=== PATIENT | female | born 1955 | race Caucasian/White ===

== ENCOUNTER → 2018-01-12 | Outpatient (CLI) | payer OTHER | END | disposition home or self-care (01) | LOC: CFH 11:43 | PROVIDERS: ATTEND Family Medicine | DX: M17.12 Unilateral primary osteoarthritis, left knee (principal) ==

== ENCOUNTER 2018-03-24 08:38 | Inpatient (IN) | payer OTHER ==
[~2018-03-24] VITALS: Ht 152.4 cm; Wt 73.7 kg
[2018-03-24] MEDS ORDERED: HYDROmorphone 2 MG/ML, 1ML ONE ×2 (09:12→10:07)
[2018-03-24 09:26] LABS: MEAN CORPUSCULAR HEMOGLOBIN 30.3 pg (27.0-34.8); MEAN CORPUSCULAR HGB CONC 33.2 g/dL (32.4-35.8); MEAN CORPUSCULAR VOLUME 91.3 fL (80-100); MEAN PLATELET VOLUME 8.5 fL (7.4-10.4); PLATELET COUNT 289 x10^3/uL (130-400); RED BLOOD COUNT 4.86 x10^6/uL (3.82-5.3); RED CELL DISTRIBUTION WIDTH 12.8 % (9.6-15.2)
[2018-03-24 09:29] LABS: MICROSCOPIC AUTO
[2018-03-24] MEDS ORDERED: HYDROmorphone 1 MG/ML, 1ML IM ONE (09:30)
[2018-03-24 09:31] LABS: CULTURE INDICATED? YES
[2018-03-24 09:35] LABS: ALANINE AMINOTRANSFERASE 23 U/L (12-78); ANION GAP 11 mmol/L (5-15); CALCIUM 8.3 mg/dL (8.5-10.1); CHLORIDE 105 mmol/L (98-107); CREATININE 1.03 mg/dL (0.55-1.02)
[2018-03-24 09:38] LABS: ALKALINE PHOSPHATASE 105 U/L (45-117); BILIRUBIN,TOTAL 0.5 mg/dL (0.2-1.0); TOTAL PROTEIN 7.8 g/dL (6.4-8.2)
[2018-03-24 09:42] LABS: BASOPHILS # (AUTO) 0.02 x10^3/uL (0-0.1); BASOPHILS % (AUTO) 0 % (0-1); EOSINOPHILS # (AUTO) 0.02 x10^3/uL (0-0.4); EOSINOPHILS % (AUTO) 0 % (1-7); LYMPHOCYTES # (AUTO) 0.86 x10^3/uL (1-3.4); LYMPHOCYTES % (AUTO) 6 % (22-44); MD SCAN; MONOCYTES # (AUTO) 0.03 x10^3/uL (0.2-0.8); MONOCYTES % (AUTO) 0 % (2-9); NEUTROPHILS # (AUTO) 13.99 x10^3/uL (1.8-6.8); NEUTROPHILS % (AUTO) 94 % (42-75)
[2018-03-24] MEDS ORDERED: HYDROmorphone 2 MG/ML, 1ML IVPush PRN (10:00)
[2018-03-24] MEDS ORDERED: SODIUM CHLORIDE 0.9% 1,000 ML IV ONE (10:01)
[2018-03-24] MEDS ORDERED: ONDANSETRON 2MG/ML, 2ML ONE ×2 (10:07→10:38)
[2018-03-24] MEDS ORDERED: CEFTRIAXONE PMX 1GM/50ML 50 ML ONE (10:07)
[2018-03-24] MEDS ORDERED: MIDAZOLAM 1 MG/ML, 2ML ONE (10:20)
[2018-03-24] MEDS ORDERED: FENTANYL PF 100 MCG/2ML ONE (10:20)
[2018-03-24] MEDS ORDERED: ONDANSETRON 2MG/ML, 2ML IVPush ONE ×3 (10:30→13:30)
[2018-03-24] MEDS ORDERED: CEFTRIAXONE PMX 1GM/50ML 50 ML IV ONE (10:30)
[2018-03-24] MEDS ORDERED: PROPOFOL 10 MG/ML, 20ML ONE (10:38)
[2018-03-24] MEDS ORDERED: DEXAMETHASONE 4 MG/ML, 1ML ONE (10:38)
[2018-03-24] MEDS ORDERED: ROCURONIUM 10MG/ML,5ML ONE (10:38)
[2018-03-24] MEDS ORDERED: SUCCINYLCHOLINE 20 MG/ML, 10ML ONE (10:38)
[2018-03-24] MEDS ORDERED: ONDANSETRON ODT 8 MG PO PRN (11:30)
[2018-03-24] MEDS ORDERED: FENTANYL PF 100 MCG/2ML IV PRN (11:30)
[2018-03-24] MEDS ORDERED: hydrALAzine 20 MG/ML, 1ML IV PRN (11:30)
[2018-03-24] MEDS ORDERED: PROMETHAZINE 12.5 MG SUPP PR PRN (11:30)
[2018-03-24] MEDS ORDERED: ONDANSETRON 2MG/ML, 2ML IV PRN (11:30)
[2018-03-24] MEDS ORDERED: LABETALOL 5MG/ML, 20ML IV PRN (11:30)
[2018-03-24] MEDS ORDERED: HYDROmorphone 1 MG/ML, 1ML IV PRN (11:30)
[2018-03-24] MEDS ORDERED: OXYcodone 5 MG/5 ML ORAL.SOL UDC PO PRN (11:30)
[2018-03-24] MEDS ORDERED: OXYcodone 5 MG/5 ML ORAL.SOL UDC ONE (11:35)
[2018-03-24 13:10] VITALS: BP 111/69
[2018-03-24 13:14] VITALS: BP 112/66
[2018-03-24] MEDS ORDERED: LISI-167 PO (13:36)
[2018-03-24] MEDS ORDERED: CALC-534 PO (13:36)
[2018-03-24] MEDS ORDERED: morphine SULFATE 10 MG/ML, 1ML IVPush PRN (14:00)
[2018-03-24] MEDS ORDERED: LABETALOL 5MG/ML, 20ML IVPush PRN (14:30)
[2018-03-24] MEDS ORDERED: BISACODYL 10 MG SUPP PR PRN (14:30)
[2018-03-24] MEDS ORDERED: DOCUSATE 100 MG CAPSULE PO PRN (14:30)
[2018-03-24] MEDS ORDERED: KETOROLAC 30 MG/1 ML IV PRN (14:30)
[2018-03-24] MEDS ORDERED: ACETAMINOPHEN 325 MG TABLET PO PRN (14:30)
[2018-03-24] MEDS: SODIUM CHLORIDE 0.9% 1,000 ML IV SCH ×2 (15:19→23:00)
[2018-03-24 18:57] VITALS: BP 95/63
[2018-03-25 00:09] VITALS: BP 93/54
[2018-03-25 04:09] VITALS: BP 94/55
[2018-03-25 05:58] LABS: ANION GAP 8 mmol/L (5-15); CALCIUM 7.1 mg/dL (8.5-10.1); CHLORIDE 110 mmol/L (98-107)
[2018-03-25] MEDS: SODIUM CHLORIDE 0.9% 1,000 ML IV SCH (06:11)
[2018-03-25 06:55] LABS: MEAN CORPUSCULAR HEMOGLOBIN 30.9 pg (27.0-34.8); MEAN CORPUSCULAR HGB CONC 33.8 g/dL (32.4-35.8); MEAN CORPUSCULAR VOLUME 91.4 fL (80-100); PLATELET COUNT 224 x10^3/uL (130-400); RED BLOOD COUNT 3.85 x10^6/uL (3.82-5.3); RED CELL DISTRIBUTION WIDTH 13.3 % (9.6-15.2)
[2018-03-25 07:23] LABS: MD YES
[2018-03-25 07:29] LABS: <PLATELET ESTIMATE> ADEQUATE; <PLT MORPHOLOGY> NORMAL PLT MORPH; <RBC MORPHOLOGY> NORMAL; BAND#(MANUAL) 1.51 x10^3/uL; BANDS%(MANUAL) 10 % (0-7); LYMPHS% (MANUAL) 4 % (22-44); SEG#(MANUAL) 12.99 x10^3/uL (1.8-6.8); SEGS% (MANUAL) 86 % (42-75)
[2018-03-25] MEDS: CEFTRIAXONE PMX 1GM/50ML 50 ML IV SCH (08:45)
[2018-03-25] MEDS: PROCHLORPERAZINE 5 MG TABLET PO PRN (08:45)
[2018-03-25 08:48] VITALS: BP 101/60
[2018-03-25] MEDS ORDERED: SODIUM CHLORIDE 0.9% 1,000 ML IV SCH (14:24)
[2018-03-25 15:59] VITALS: BP 129/72
[2018-03-25] MEDS: POLYETHYLENE GLYCOL 17 GM PACKET PO PRN (16:18)
[2018-03-25 20:15] VITALS: BP 111/61
[2018-03-26 01:34] VITALS: BP 106/65
[2018-03-26 05:47] LABS: BASOPHILS % (AUTO) 0 % (0-1); EOSINOPHILS # (AUTO) 0.05 x10^3/uL (0-0.4); EOSINOPHILS % (AUTO) 1 % (1-7); LYMPHOCYTES # (AUTO) 0.82 x10^3/uL (1-3.4); LYMPHOCYTES % (AUTO) 8 % (22-44); MD NO; MEAN CORPUSCULAR HEMOGLOBIN 30.9 pg (27.0-34.8); MEAN CORPUSCULAR HGB CONC 33.6 g/dL (32.4-35.8); MEAN CORPUSCULAR VOLUME 91.9 fL (80-100); MEAN PLATELET VOLUME 8.6 fL (7.4-10.4); MONOCYTES # (AUTO) 0.73 x10^3/uL (0.2-0.8); MONOCYTES % (AUTO) 7 % (2-9); NEUTROPHILS # (AUTO) 9.09 x10^3/uL (1.8-6.8); NEUTROPHILS % (AUTO) 85 % (42-75); PLATELET COUNT 208 x10^3/uL (130-400)
[2018-03-26 05:51] LABS: CHLORIDE 111 mmol/L (98-107)
[2018-03-26 06:04] LABS: ANION GAP 6 mmol/L (5-15); CALCIUM 7.6 mg/dL (8.5-10.1); CREATININE 0.62 mg/dL (0.55-1.02)
[2018-03-26 07:28] VITALS: BP 112/70
[2018-03-26] MEDS: PROCHLORPERAZINE 5 MG TABLET PO PRN (09:28)
[2018-03-26] MEDS: POLYETHYLENE GLYCOL 17 GM PACKET PO PRN (09:34)
[2018-03-26] MEDS: CEFTRIAXONE PMX 1GM/50ML 50 ML IV SCH (10:12)
[2018-03-26 13:06] VITALS: BP 124/69
[2018-03-26] MEDS ORDERED: CEFD300C37 PO (14:58)
[2018-03-26] MEDS ORDERED: ONDA4TAB7 PO (14:58)
== END 2018-03-26 16:39 | disposition home or self-care (01) | DRG 853 ==
LOC: ED 09:34 → EDIP 10:16 → 4NOR 12:20 → DCLOUNGE 03-26 16:25
PROVIDERS: ADMIT Internal Medicine; ATTEND Internal Medicine
PROC: 0T738DZ Dilation of Right Kidney Pelvis with Intraluminal Device, Via Natural or Artificial Opening Endoscopic (ICD-10-PCS; 2018-03-24)
PROC: BT1D1ZZ Fluoroscopy of Right Kidney, Ureter and Bladder using Low Osmolar Contrast (ICD-10-PCS; 2018-03-24)
PROC: 0TC68ZZ Extirpation of Matter from Right Ureter, Via Natural or Artificial Opening Endoscopic (ICD-10-PCS; principal; 2018-03-24 10:30)
DX: A41.9 Sepsis, unspecified organism (principal); N17.0 Acute kidney failure with tubular necrosis; N13.6 Pyonephrosis; M81.0 Age-related osteoporosis without current pathological fracture; I10 Essential (primary) hypertension; E78.5 Hyperlipidemia, unspecified; B95.1 Streptococcus, group B, as the cause of diseases classified elsewhere; B96.20 Unspecified Escherichia coli [E. coli] as the cause of diseases classified elsewhere; E78.00 Pure hypercholesterolemia, unspecified; Z80.1 Family history of malignant neoplasm of trachea, bronchus and lung; Z80.8 Family history of malignant neoplasm of other organs or systems; Z87.891 Personal history of nicotine dependence; Z90.49 Acquired absence of other specified parts of digestive tract
CPT/HCPCS: 36415; 74176; 80048; 80053; 81001; 82360; 83690; 85025; 87040; 87077; 87086; 87147; 87186; 88300; 93005; 96374; G0378; J0696; J1100; J1170; J2250; J2405; J2704; J3010; C2617; J0330; J2270; J7030; Q0164

== ENCOUNTER → 2019-09-30 | Outpatient (CLI) | payer OTHER ==
[~2019-09-30] MED LIST: CALC-534 PO; CEFD300C37 PO; LISI-167 PO; ONDA4TAB7 PO
== END | disposition home or self-care (01) ==
LOC: RAD 16:22
PROVIDERS: ATTEND Urology
DX: N20.0 Calculus of kidney (principal)
CPT/HCPCS: 74176